=== PATIENT | female | born 1950 | race Caucasian/White ===

== ENCOUNTER → 2019-02-04 | Outpatient (CLI) | payer MEDICARE, OTHER ==
--- NOTE | 2019-02-05 08:29 | Diagnostic Imaging Report ---
INDICATION: Chronic bilateral knee pain. COMPARISON: None. FINDINGS: Multiple radiographic views of the bilateral knees demonstrate no acute fracture or dislocation. No focal osseous lesions are seen. No significant joint effusion is seen. The surrounding soft tissue structures are unremarkable. There are no radiopaque foreign bodies. IMPRESSION: 1. Unremarkable radiographic exam of the bilateral knees. Dictated by: Dictated on workstation # [id number]
== END ==
LOC: RAD FS 11:18
PROVIDERS: ATTEND Nurse Practitioner
DX: M25.561 Pain in right knee (principal); M25.562 Pain in left knee

== ENCOUNTER 2019-06-20 01:54 | Emergency (ER) | payer MEDICARE, OTHER ==
[~2019-06-20] VITALS: Ht 152 cm; Wt 70.0 kg
[2019-06-20] MEDS ORDERED: NS IV 1000 ML 1,000 ML IV STA (02:15)
--- NOTE | 2019-06-20 02:23 | ED Chest Pain ---
General Chief Complaint: Chest Pain Stated Complaint: CHEST PAIN Nursing Triage Note: PT COMPLAINING OF CHEST PAIN THAT STARTED A WEEK AGO Nursing Sepsis Screen: No Definite Risk Source: patient, family Exam Limitations: clinical condition (patient had chest pain progressively worse over the past week. This evening the patient told her that she needed wound of the emergency room.) History of Present Illness Date Seen by Provider: Jun 20, 2019 Time Seen by Provider: 02:08 Initial Comments 69-year-old female presents to the emergency room with chest pain that is gradually getting worse over the past week. Pain is presternal and goes straight through to her back. Patient has no history of trauma no history of ischemic heart disease. She does have a history of hypertension. Patient has given informed consent for diagnostic and therapeutic services. Myocardial infarction protocol started. Timing/Duration: 4-6 hours (it has been gradually worsening over the past week) Severity/Quality: moderate, dull, ingestion, pressure, tightness Location: substernal, central, back Radiation: shoulders, epigastric Activities at Onset: rest Prior CP/Workup: no prior chest pain, non-cardiac Modifying Factors: improves with breathing, improves with movement (and a sling on her left side makes the pain much worse) ASA po VENDING MACHINE TECHNICIAN: No NTG SL VENDING MACHINE TECHNICIAN: No Associated Symptoms: back pain, heartburn, shortness of breath, weakness Allergies and Home Medications Allergies Coded Allergies: No Known Drug Allergies (Unverified , 06/20/19) Patient Home Medication List Home Medication List Reviewed: Yes Review of Systems Review of Systems Constitutional: malaise (with chest pain that waxes and wanes), weakness EENTM: No Symptoms Reported Respiratory: Shortness of Air Cardiovascular: Chest Pain Gastrointestinal: Abdominal Pain, Nausea Genitourinary: No Symptoms Reported Musculoskeletal: back pain, muscle stiffness, muscle weakness Skin: no symptoms reported Psychiatric/Neurological: Anxiety, Weakness Endocrine: No Symptoms Reported Hematologic/Lymphatic: No Symptoms Reported Past Qmbdnem-Tjujaq-Kjkyqn Hx Patient Social History Alcohol Use: Denies Use Recreational Drug Use: No Smoking Status: Never a Smoker 2nd Hand Smoke Exposure: No Recent Foreign Travel: No Contact w/Someone Who Travel: No Recent Infectious Disease Expo: No Recent Hopitalizations: No Physical Abuse: No Sexual Abuse: No Past Medical History Surgeries: Yes Hysterectomy Respiratory: No Cardiac: No Neurological: No Genitourinary: No Gastrointestinal: No Musculoskeletal: No Endocrine: No HEENT: No Cancer: No Psychosocial: No Integumentary: No Blood Disorders: No Physical Exam Vital Signs Vital Signs - First Documented 06/20/19 01:57 Temp 36.2 Pulse 84 Resp 18 B/P (MAP) 179/99 (125) Pulse Ox 97 O2 Delivery Room Air Capillary Refill : Less Than 3 Seconds Height, Weight, BMI Height: '" Weight: lbs. oz. kg; 30.00 BMI Method: General Appearance: WD/WN, Anxious, Moderate Distress HEENT: PERRL/EOMI, TMs Normal, Normal ENT Inspection, Pharynx Normal, Moist Mucous Membranes Neck: Full Range of Motion, Normal Inspection, Non Tender, Supple Respiratory: Chest Non Tender, Lungs Clear, Normal Breath Sounds, No Accessory Muscle Use, No Respiratory Distress Cardiovascular: Regular Rate, Rhythm, No Edema, No Gallop, No JVD, No Murmur, Normal Peripheral Pulses Gastrointestinal: Normal Bowel Sounds, No Organomegaly, No Pulsatile Mass, Non Tender, Soft (cardiac eval negative and GI cocktail helped and pantoprazole 40 po given) Extremity: Normal Capillary Refill, Normal Inspection, Normal Range of Motion, Non Tender, No Calf Tenderness Neurologic/Psychiatric: Alert, Oriented x3, No Motor/Sensory Deficits, Normal 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, 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 as Tested Skin: Normal Color, Warm/Dry Lymphatic: No Adenopathy Progress/Results/Core Measures Results/Orders Lab Results Laboratory Tests Test 06/20/19 02:06 06/20/19 04:02 Range/Units White Blood Count 5.6 4.3-11.0 10^3/uL Red Blood Count 4.80 4.35-5.85 10^6/uL Hemoglobin 14.7 11.5-16.0 G/DL Hematocrit 43 35-52 % Mean Corpuscular Volume 90 80-99 FL Mean Corpuscular Hemoglobin 31 25-34 PG Mean Corpuscular Hemoglobin Concent 34 32-36 G/DL Red Cell Distribution Width 11.9 10.0-14.5 % Platelet Count 295 130-400 10^3/uL Mean Platelet Volume 10.2 7.4-10.4 FL Neutrophils (%) (Auto) 50 42-75 % Lymphocytes (%) (Auto) 34 12-44 % Monocytes (%) (Auto) 12 0-12 % Eosinophils (%) (Auto) 4 0-10 % Basophils (%) (Auto) 1 0-10 % Neutrophils # (Auto) 2.8 1.8-7.8 X 10^3 Lymphocytes # (Auto) 1.9 1.0-4.0 X 10^3 Monocytes # (Auto) 0.7 0.0-1.0 X 10^3 Eosinophils # (Auto) 0.2 0.0-0.3 10^3/uL Basophils # (Auto) 0.0 0.0-0.1 10^3/uL Prothrombin Time 13.0 12.2-14.7 SEC INR Comment 0.9 0.8-1.4 Activated Partial Thromboplast Time 25 24-35 SEC Sodium Level 141 135-145 MMOL/L Potassium Level 3.5 L 3.6-5.0 MMOL/L Chloride Level 102 98-107 MMOL/L Carbon Dioxide Level 26 21-32 MMOL/L Anion Gap 13 5-14 MMOL/L Blood Urea Nitrogen 10 7-18 MG/DL Creatinine 0.77 0.60-1.30 MG/DL Estimat Glomerular Filtration Rate > 60 BUN/Creatinine Ratio 13 Glucose Level 103 70-105 MG/DL Calcium Level 9.6 8.5-10.1 MG/DL Corrected Calcium 9.3 8.5-10.1 MG/DL Magnesium Level 2.2 1.6-2.4 MG/DL Total Bilirubin 0.2 0.1-1.0 MG/DL Aspartate Amino Transf (AST/SGOT) 13 5-34 U/L Alanine Aminotransferase (ALT/SGPT) 11 0-55 U/L Alkaline Phosphatase 78 40-136 U/L Troponin I < 0.30 < 0.30 <0.30 NG/ML Total Protein 7.3 6.4-8.2 GM/DL Albumin 4.4 3.2-4.5 GM/DL Lipase 43 8-78 U/L My Orders Orders - SHARYN TAFOYA DO Cbc With Automated Diff (06/20/19 02:06) Magnesium (06/20/19 02:06) Chest 1 View Ap/Pa Only (06/20/19 02:06) Ekg Tracing (06/20/19 02:06) Comprehensive Metabolic Panel (06/20/19 02:06) Protime With Inr (06/20/19 02:06) Partial Thromboplastin Time (06/20/19 02:06) O2 (06/20/19 02:06) Monitor-Rhythm Ecg Trace Only (06/20/19 02:06) Ed Iv/Invasive Line Start (06/20/19 02:06) Troponin I Fs (06/20/19 02:06) Lipase (06/20/19 02:14) Ns Iv 1000 Ml (Sodium Chloride 0.9%) (06/20/19 02:15) Nitroglycerin Ointment (Nitrobid Ointme (06/20/19 02:30) Troponin I Fs (06/20/19 04:00) Lidocaine 2% Viscous 15 Ml (Xylocaine Vi (06/20/19 03:15) Antacid Suspension (Mylanta Suspension (06/20/19 03:15) Lidocaine 2% Viscous 15 Ml (Xylocaine Vi (06/20/19 03:06) Antacid Suspension (Mylanta Suspension (06/20/19 03:06) Pantoprazole Tablet (Protonix Tablet) (06/20/19 04:45) Pantoprazole Tablet (Protonix Tablet) (06/20/19 04:31) Pantoprazole Tablet (Protonix Tablet) (06/20/19 04:45) Medications Given in ED Current Medications Medications Dose Ordered Sig/Heidi Route Start Time Stop Time Status Last Admin Dose Admin Al Hydrox/Mg Hydrox/Simethicone 30 ml ONCE ONCE PO 06/20/19 03:15 06/20/19 03:16 DC 06/20/19 03:11 30 ML Lidocaine HCl 5 ml ONCE ONCE PO 06/20/19 03:15 06/20/19 03:16 DC 06/20/19 03:12 5 ML Nitroglycerin 1 inch ONCE ONCE TOP 06/20/19 02:30 06/20/19 02:31 DC 06/20/19 02:23 1 INCH Vital Signs/I&O 06/20/19 01:57 Temp 36.2 Pulse 84 Resp 18 B/P (MAP) 179/99 (125) Pulse Ox 97 O2 Delivery Room Air Blood Pressure Mean: 125 Initial ECG Impression Date: Jun 20, 2019 Initial ECG Impression Time: 02:00 Initial ECG Rate: 71 Initial ECG Rhythm: Normal Sinus Initial ECG Intervals: Normal Initial ECG Impression: Normal Departure Impression Primary Impression: Indigestion Additional Impression: Gastroesophageal reflux disease Disposition: HOME, SELF-CARE Condition: Stable Departure-Patient Inst. Decision time for Depature: 04:43 Referrals: KAVITA RIVERA MD (PCP/Family) Primary Care Physician Patient Instructions: Acid Reflux (Gastroesophageal Reflux Disease) in Adults Add. Discharge Instructions: All discharge instructions reviewed with patient and/or family. Voiced understanding. Scripts Pantoprazole Sodium (Pantoprazole Sodium) 40 Mg Tablet. 40 MG PO DAILY for GI Upset, #30 TAB Prov: SHARYN TAFOYA DO 06/20/19 SHARYN TAFOYA DO Jun 20, 2019 02:23
[2019-06-20] MEDS ORDERED: NITROGLYCERIN 2% OINT 1 GM UNIT DOSE PACKET TOP ONE (02:30)
[2019-06-20 02:41] LABS: BASOPHILS % (AUTO) 1 % (0-10); EOSINOPHILS # (AUTO) 0.2 10^3/uL (0.0-0.3); EOSINOPHILS % (AUTO) 4 % (0-10); HEMATOCRIT 43 % (35-52); HEMOGLOBIN 14.7 G/DL (11.5-16.0); LYMPHOCYTES # (AUTO) 1.9 X 10^3 (1.0-4.0); LYMPHOCYTES % (AUTO) 34 % (12-44); MEAN CORPUSCULAR HEMOGLOBIN 31 PG (25-34); MEAN CORPUSCULAR HGB CONC 34 G/DL (32-36); MEAN CORPUSCULAR VOLUME 90 FL (80-99); MEAN PLATELET VOLUME 10.2 FL (7.4-10.4); MONOCYTES # (AUTO) 0.7 X 10^3 (0.0-1.0); MONOCYTES % (AUTO) 12 % (0-12); NEUTROPHILS # (AUTO) 2.8 X 10^3 (1.8-7.8); NEUTROPHILS % (AUTO) 50 % (42-75); PLATELET COUNT 295 10^3/uL (130-400); RED CELL DISTRIBUTION WIDTH 11.9 % (10.0-14.5); WHITE BLOOD COUNT 5.6 10^3/uL (4.3-11.0)
[2019-06-20 02:58] LABS: INR 0.9 (0.8-1.4)
[2019-06-20 03:03] LABS: ALANINE AMINOTRANSFERASE 11 U/L (0-55); ALBUMIN 4.4 GM/DL (3.2-4.5); ALKALINE PHOSPHATASE 78 U/L (40-136); BILIRUBIN,TOTAL 0.2 MG/DL (0.1-1.0); BUN/CREATININE RATIO 13; CALCIUM 9.6 MG/DL (8.5-10.1); CARBON DIOXIDE 26 MMOL/L (21-32); CHLORIDE 102 MMOL/L (98-107); CREATININE SERUM 0.77 MG/DL (0.60-1.30); GFR ESTIMATED > 60; GLUCOSE 103 MG/DL (70-105); LIPASE 43 U/L (8-78); MAGNESIUM 2.2 MG/DL (1.6-2.4); POTASSIUM 3.5 MMOL/L (3.6-5.0); SODIUM 141 MMOL/L (135-145); TOTAL PROTEIN 7.3 GM/DL (6.4-8.2)
[2019-06-20] MEDS ORDERED: ANTACID SUSP 30 ML UDC (MYLANTA) ONE (03:06)
[2019-06-20] MEDS ORDERED: LIDOCAINE 2% VISCOUS 15 ML UDC ONE (03:06)
[2019-06-20] MEDS ORDERED: ANTACID SUSP 30 ML UDC (MYLANTA) PO ONE (03:15)
[2019-06-20] MEDS ORDERED: LIDOCAINE 2% VISCOUS 15 ML UDC PO ONE (03:15)
[2019-06-20] MEDS ORDERED: PANTOPRAZOLE 40 MG (PROTONIX) TAB PO ONE ×3 (04:31→04:45)
[2019-06-20] MEDS ORDERED: PANT40TA3 PO (04:45)
[2019-06-20 04:46] VITALS: BP 155/79
--- NOTE | 2019-06-20 07:02 | Diagnostic Imaging Report ---
CHEST 1 VIEW AP/PA ONLY Indication: Chest pain. Comparison: None available. Findings: Right midlung zone ill-defined masslike consolidation measures approximate 4 cm in size. No pleural effusion or pneumothorax. Normal cardiomediastinal silhouette. Impression: 1. Right pulmonary masslike consolidation may represent pneumonia. However, a mass could also give this appearance. Advise followup PA and lateral chest radiographs in 4 weeks after appropriate medical management to ensure resolution. Dictated by: Dictated on workstation # [id number]
== END 2019-06-20 05:04 | disposition home or self-care (01) ==
LOC: EDUNIT# 01:54 → ER FS 01:57
DX: K30 Functional dyspepsia (principal); K21.9 Gastro-esophageal reflux disease without esophagitis; I10 Essential (primary) hypertension; Z90.710 Acquired absence of both cervix and uterus
CPT/HCPCS: 36415; 71045; 80053; 83690; 83735; 84484; 85025; 85610; 85730; 93005; 93041; 96360

== ENCOUNTER 2019-08-16 11:16 | Outpatient (RCR) | payer MEDICARE, OTHER ==
[~2019-08-16 11:16] MED LIST: PANT40TA3 PO
== END 2019-10-24 | disposition home or self-care (01) ==
LOC: CR 11:16
PROVIDERS: ATTEND Internal Medicine Cardiovascular Disease
DX: Z95.5 Presence of coronary angioplasty implant and graft (principal)
CPT/HCPCS: 93798

== ENCOUNTER → 2019-10-28 | Outpatient (CLI) | payer MEDICARE, OTHER ==
[~2019-10-28] MED LIST changes: +CATHETER FLUSH 10 ML SYR IV PRN
--- NOTE | 2019-10-28 13:18 | Diagnostic Imaging Report ---
INDICATION: Epigastric abdominal pain. Patient was administered 5.4 mCi technetium 99m Choletec intravenously and imaging over the abdomen was performed. After 60 minutes patient ingested 1 can of Ensure and a gallbladder ejection fraction was calculated. There is homogeneous uptake of activity by the liver. There is prompt excretion of activity into the common duct and gallbladder with normal passage of activity into the small bowel. Gallbladder ejection fraction is normal at 77%. IMPRESSION: Normal HIDA scan and gallbladder ejection fraction. Dictated by: Dictated on workstation # [id number]
== END ==
LOC: CARD 09:32
PROVIDERS: ATTEND Family Medicine
DX: R10.13 Epigastric pain (principal)
CPT/HCPCS: 78227

== ENCOUNTER → 2021-07-31 | Outpatient (CLI) | payer MEDICARE, OTHER ==
[~2021-07-31] MED LIST changes: -CATHETER FLUSH 10 ML SYR IV PRN; -PANT40TA3 PO; +PANT40TA52 PO
--- NOTE | 2021-07-31 10:07 | Diagnostic Imaging Report ---
INDICATION: Postmenopausal screening COMPARISON: Baseline FINDINGS: AP Spine L1-L4: [BMD (g/cm2): 0.930] [T-Score: -2.2] [Z-Score: -0.8] [BMD Previous: NA] [BMD % Change: NA] LT Hip Neck: [BMD (g/cm2): 0.664] [T-Score: -2.7] [Z-Score: -1.0] LT Hip Total: [BMD (g/cm2):0.851] [T-Score:-1.2] [Z-Score: 0.2] [BMD Previous: NA] [BMD % Change: NA] RT Hip Neck: [BMD (g/cm2):0.694] [T-Score:-2.5] [Z-Score:-0.8] RT Hip Total: [BMD (g/cm2):0.850] [T-score:-1.3] [Z-Score:0.2] [BMD Previous:NA] [BMD % Change:NA] *Indicates significant change from prior examination based on 95% confidence level. World Health Organization criteria for BMD interpretation classify patients as Normal (T-score at or above -1.0), Osteopenic (T-score between -1.0 and -2.5) or Osteoporotic (T-score at or below -2.5). LIMITATIONS AND MODIFICATION: None. FRACTURE RISK (FRAX SCORE): The ten year probability of (%): Major Osteoporotic Fracture: [25.3] Hip Fracture: [7.7] IMPRESSION: 1. Osteoporosis. 2. Baseline examination. 3. See below National Osteoporosis Foundation guidelines on when to potentially initiate pharmacologic therapy. Based on the National Osteoporosis Foundation Guidelines, pharmacologic treatment should be initiated in any of the following, unless clinical conditions suggest otherwise: * Any patient with prior fragility fracture of the hip or vertebrae. A spine fracture indicates 5X risk for subsequent spine fracture and 2X risk for subsequent hip fracture. * Osteoporosis (T-score <-2.5). * Postmenopausal women and men age 50 and older with low bone mass/osteopenia (T-score between -1.0 and -2.5) by DXA and 10-year major osteoporotic fracture greater than 20% or a 10-year probability of hip fracture greater than 3%. These fracture risks are supplied above in the FRAX score, if applicable. * Clinician judgement and/or patient preferences may indicate treatment for people with 10-year fracture probabilities above or below these levels. Dictated by: Dictated on workstation # [id number]
== END ==
LOC: RAD 09:30
PROVIDERS: ATTEND Nurse Practitioner Family
DX: M81.0 Age-related osteoporosis without current pathological fracture (principal); Z78.0 Asymptomatic menopausal state
CPT/HCPCS: 77080

== ENCOUNTER → 2021-09-27 | Outpatient (CLI) | payer MEDICARE, OTHER ==
--- NOTE | 2021-09-27 15:01 | Diagnostic Imaging Report ---
Indication: Shortness of breath. Time of Exam: 12:30 PM Comparison is made with prior chest from 06/20/2019. Heart size normal. There is a small to moderate effusion that has developed since prior study. Lungs appear clear. The vascularity is normal. There is no pneumothorax. There are surgical clips in the right suprahilar region. Impression: Development of right basilar effusion when compared to exam from 06/20/2019. Dictated by: Dictated on workstation # [id number]
== END ==
LOC: RAD FS 12:14
PROVIDERS: ATTEND Family Medicine
DX: J90 Pleural effusion, not elsewhere classified (principal); C34.91 Malignant neoplasm of unspecified part of right bronchus or lung
CPT/HCPCS: 71046

== ENCOUNTER → 2021-09-28 | Outpatient (CLI) | payer MEDICARE, OTHER ==
[~2021-09-28] MED LIST changes: +CATHETER FLUSH 10 ML SYR IV PRN; +HOLD METFORMIN - RECEIVED CONTRAST 20 ML VIAL IV SCH; +IOHEXOL 350 MG/ML 100 ML (OMNIPAQUE 350) VIAL IV ONE; +NS 100 ML (IVPB) BAG IV ONE
[2021-09-28 09:30] LABS: CREATININE SERUM 0.84 MG/DL (0.60-1.30); POTASSIUM 4.5 MMOL/L (3.6-5.0)
[2021-09-28 09:32] LABS: BILIRUBIN,TOTAL 0.5 MG/DL (0.1-1.0); CALCIUM 9.8 MG/DL (8.5-10.1)
[2021-09-28 09:33] LABS: ALBUMIN 4.2 GM/DL (3.2-4.5); TOTAL PROTEIN 7.1 GM/DL (6.4-8.2)
--- NOTE | 2021-09-28 10:07 | Diagnostic Imaging Report ---
EXAMINATION: CT chest with intravenous contrast. TECHNIQUE: Multiple contiguous axial images were obtained through the chest after the uneventful administration of intravenous contrast. All CT scans use one or more of the following dose optimizing techniques: automated exposure control, MA and/or KvP adjustment based on patient size and exam type or iterative reconstruction. HISTORY: Shortness of breath. History of lung cancer. COMPARISON: Chest radiograph on 09/27/2021. FINDINGS: The heart size is within normal limits. No pericardial effusion is present. There is no mediastinal, hilar, or axillary lymphadenopathy. Postsurgical changes of right lower lobectomy are visualized. There is associated volume loss. The lungs demonstrate no pulmonary nodules or masses. There are no focal areas of consolidation. No central endobronchial obstructing lesions are identified. There is no pleural effusion or pneumothorax. The osseous structures demonstrate no acute abnormalities. Limited views of the upper abdominal structures demonstrate no acute abnormalities. Both adrenal glands are unremarkable. IMPRESSION: 1. No focal consolidation or suspicious pulmonary nodules. No pleural effusion. 2. Postsurgical changes of right lower lobectomy with associated volume loss. No evidence of residual or recurrent mass. Dictated by: Dictated on workstation # [id number]
== END ==
LOC: RAD FS 08:51
PROVIDERS: ATTEND Nurse Practitioner Family
DX: R06.02 Shortness of breath (principal); Z90.2 Acquired absence of lung [part of]; Z85.118 Personal history of other malignant neoplasm of bronchus and lung
CPT/HCPCS: 36415; 71260; 80053; Q9967